=== PATIENT | male | born 1960 ===

== ENCOUNTER 2022-10-19 14:33 | Outpatient (CLI) | payer OTHER, SELFPAY ==
[2022-10-19 18:21] LABS: Free T4 Free Thyroxine 1.06 ng/mL (0.78-2.19); Vitamin D 25 Hydroxy 23.5 ng/mL
[2022-10-25 07:14] LABS: Triiodothyronine T3 Free 2.7 pg/mL (2.3-4.2)
== END 2022-10-19 14:34 | disposition home or self-care (01) ==
LOC: ANHWCLAB 14:35
PROVIDERS: Visit Provider Internal Medicine Endocrinology, Diabetes & Metabolism
DX: R79.89 Other specified abnormal findings of blood chemistry (principal); R94.6 Abnormal results of thyroid function studies; E04.9 Nontoxic goiter, unspecified; E11.65 Type 2 diabetes mellitus with hyperglycemia; Z79.4 Long term (current) use of insulin
CPT/HCPCS: 36415; 82306; 84439; 84443; 84481